=== PATIENT | female | born 1965 | race Hispanic/Latino ===

== ENCOUNTER 2016-05-30 10:49 | Emergency (ER) | payer OTHER ==
[~2016-05-30] VITALS: Ht 154.9 cm; Wt 81.8 kg
[~2016-05-30 10:49] MED LIST: LISI1TAB7 PO
[2016-05-30 10:54] VITALS: BP 135/79; PULSE 69; RESP 18; O2SAT 96
--- NOTE | 2016-05-30 11:03 | ED.REPORT ---
HPI-Abd Pain F 40 and Over Date of Service May 30, 2016 ED Provider: History of Present Illness: right flank pain for a while, told it was a muscle for 2 years worse since sunday, some nausea and burning with urination shan is primary care. normally healthy. 06/14, nothing for the pain Nursing Notes Stated Complaint: LOWER BACK PAIN/ABDOMINAL PAIN Chief Complaint: Female Abdominal Pain Allergies: Coded Allergies: No Known Allergies (Unverified , 01/27/16) Scheduled Lisinopril / HCTZ 10-12.5 mg (Lisinopril / HCTZ 10-12.5 mg) 1 Each Tablet 1 EACH PO DAILY General Time Seen by MD: 11:02 Chief Complaint Abdominal pain, Dysuria Hx Obtained From: Patient Sudden in Onset?: No Symptom Duration: Since onset Past Medical History Past Medical History Reports: Hypertension Past Surgical History Reports: Tubal ligation Smoking History Never Smoker Social History Alcohol Use: Denies alcohol use Drug Use: Denies drug use Occupation lives with family no work or school 05/30/2016 Ambulatory Status Independent Review of Systems Basic Review of Systems Eyes: Vision NL, No discharge Skin: No bruising, No rash, No itch Psychiatric: Normal thought content Physical Exam Vital Signs Vital Signs (First) Date Time Temp Pulse Resp B/P Pulse Ox O2 Delivery O2 Flow Rate FiO2 05/30/16 10:54 36.9 69 18 135/79 96 Room Air Initial VS: Reviewed, Vital signs normal Head / Eyes: Atraumatic, Normocephalic, PERRL ENT: Mucous membranes moist, Conjunctiva normal, No scleral icterus Neck: Supple, Non-tender, Full range of motion Lymphatic: No lymphadenopathy Extremities: Vascular intact, Neuro intact, No swelling, No tenderness Skin: Warm, Dry, No cyanosis Neurologic: Alert, Oriented, Nonfocal Psychiatric: Mood/affect normal, Behavior normal, Normal thought content General/Constitutional: Awake, Alert, No acute distress, Well appearing, Well developed, Well hydrated Respiratory / Chest: Atraumatic, Breath sounds NL, Breath sounds = bilat, No respiratory distress Cardiovascular: Heart rate NL, Regular rhythm, Heart sounds NL epigastric, right upper abd pain to palpabtion Back: Atraumatic, Inspection NL, Full range of motion Interpretation & Diagnostics Lab Results Interpretation Result Diagram: 05/30/16 1134 05/30/16 1134 Test 05/30/16 11:01 05/30/16 11:34 05/30/16 11:55 Urine Color Yellow (YELLOW) Urine Appearance Hazy (CLEAR,HAZY) Urine pH 8.5 (5.0-8.0) Urine Specific [place] 1.015 (1.003-1.035) Urine Protein Tracemg/dL (NEG,TRACE) Urine Glucose (UA) Negativemg/dL (NEGATIVE) Urine Ketones Negativemg/dL (NEGATIVE) Urine Occult Blood Moderate (NEGATIVE) Urine Nitrite Negative (NEGATIVE) Urine Bilirubin Negative (NEGATIVE) Urine Urobilinogen Normalmg/dL (NORMAL) Urine Leukocyte Esterase Small (NEGATIVE) Urine RBC 3-10/hpf (0-2) Urine WBC 11-50/hpf (0-5) Urine Epithelial Cells Occasional/hpf (NONE-MOD) Urine Crystals Amorphous urates (NONE Urine Bacteria Moderate/hpf (NONE-FEW) Urine Hyaline Casts None/lpf (NONE) Urine Granular Casts None seen (NONE SEEN) Urine Waxy Casts None seen (NONE SEEN) Urine Red Blood Cell Casts None seen (NONE SEEN) Urine White Blood Cell Casts None seen (NONE SEEN) Urine Mucus None seen (None Seen) Urine Trichomonas None seen (NONE SEEN) Urine Yeast None (NONE SEEN) Urinalysis Comment None Urine Culture Reflexed Indicated White Blood Count 13.5th/mm3 (3.8-10.1) Red Blood Count 4.43mil/mm3 (3.90-5.20) Hemoglobin 13.5g/dL (12.0-15.6) Hematocrit 39.6% (35.0-46.0) Mean Corpuscular Volume 89.4fL (81-100) Mean Corpuscular Hemoglobin 30.5pg (27.0-35.0) Mean Corpuscular Hemoglobin Concent 34.1% (32.0-37.0) Red Cell Distribution Width 12.6% (12.3-15.4) Platelet Count 239bil/L (150-400) Neutrophils (%) (Auto) 76.9% (40-74) Lymphocytes (%) (Auto) 17.0% (14-46) Monocytes (%) (Auto) 5.3% (4-12) Eosinophils (%) (Auto) 0.4% (0-5) Basophils (%) (Auto) 0.2% (0-3) Sodium Level 138mEq/L (134-144) Potassium Level 4.7mEq/L (3.5-5.2) Chloride Level 98mEq/L (97-108) Carbon Dioxide Level 26mmol/L (18-29) Blood Urea Nitrogen 11mg/dL (6-24) Creatinine 0.51mg/dL (0.57-1.00) Estimat Glomerular Filtration Rate 182mL/min (>59) Glucose Level 117mg/dL (60-99) Calcium Level 10.0mg/dL (8.5-10.1) Total Bilirubin 0.4mg/dL (0.0-1.2) Aspartate Amino Transf (AST/SGOT) 16U/L (0-50) Alanine Aminotransferase (ALT/SGPT) 23U/L (0-32) Alkaline Phosphatase 108U/L (25-150) Total Protein 7.8g/dL (6.4-8.4) Albumin 4.8g/dL (3.4-5.0) Amylase Level 53U/L (28-100) Lipase 20U/L (13-60) Hold Rodriguez Top Tube Received (Received) Lab Results Interpretation: urine shows infection CT Abd / Pelvis Interpretation PROCEDURE: CT ABDOMEN AND PELVIS WITH CONTRAST ([id number]) INDICATIONS: abd pain TECHNIQUE: After the administration of intravenous contrast, 5 mm thick sections acquired from the diaphragm to the symphysis. 5 mm coronal and sagittal reformats were acquired. For radiation dose reduction, the following was used: automated exposure control, adjustment of mA and/or kV according to patient size. COMPARISON: [facility], , US ABDOMEN, 05/30/2016, 11:56. FINDINGS: Image quality: Excellent. ABDOMEN: Lung bases: Lung bases are clear. Heart size is normal. Solid organs: Liver and spleen are normal in size. There is a partially enhancing focus within the posterior right hepatic lobe on series 2 image 17, measuring 14 mm in transverse dimension. Gallbladder is unremarkable. Biliary system is non dilated. Pancreas enhances normally. No adrenal nodules. Kidneys demonstrate normal size and enhancement, without hydronephrosis. Peritoneum and bowel: Bowel loops are overall nonobstructive. No free fluid or air. Minimal scattered diverticula are present without associated inflammatory change. There are several minimally prominent fluid filled small bowel loops, overall nonobstructive. The appendix is unremarkable. Nodes and vessels: No retroperitoneal or mesenteric adenopathy by size criteria. Aorta and inferior vena cava are normal in size. Miscellaneous: No ventral hernias. PELVIS: Genitourinary: Bladder wall thickness is normal. Miscellaneous: No inguinal hernias or adenopathy. Bones: No suspicious bony lesions. No vertebral body compression fractures. IMPRESSION: 1. Minimal fluid filled prominence of scattered small bowel loops, overall nonspecific. This could be related to enteritis. 2. Appendix is unremarkable. No associated inflammatory change. 3. No nephro or ureterolithiasis. 4. Partially enhancing hepatic focus. This is suspected to be related to hemangioma. Further evaluation with dedicated ultrasound within this focal region is recommended. Dictated by: Elizabeth Jay M.D. on 05/30/2016 at 14:57 Approved by: Elizabeth Jay M.D. on 05/30/2016 at 15:03 US Focused non-OB Pelvis PROCEDURE: US ABDOMEN INDICATIONS: abd pain TECHNIQUE: Real-time scanning was performed of the abdominal and retroperitoneal organs, with image documentation. COMPARISON: None. FINDINGS: Liver length: 14.86 cm Gallbladder Wall Thickness: 2.70 mm CHD: 3.80 mm CBD: 4 mm Spleen length: 10.28 cm Right kidney length: 9.09 cm Left kidney length: 12.26 cm Aorta(Proximal): 2.26 cm Aorta(Mid): 1.67 cm Aorta(Distal): 1.68 cm RCIA: 8.50 mm LCIA: 8.50 mm Liver: Liver is normal in size and homogeneous in echotexture. Gallbladder: Normal gallbladder. Biliary ducts: Intrahepatic bile ducts are non-dilated. Extrahepatic bile duct caliber is normal. Normal is 6-7 mm or less in diameter, or 10 mm or less post-cholecystectomy. Pancreas: Visualized portions of the pancreas are sonographically normal. Spleen: Spleen is normal in size and homogeneous in echotexture. Kidneys: Kidneys are normal in size and echotexture. No hydronephrosis or nephrolithiasis. No solid masses. Aorta: Visualized aorta is normal in caliber at less than 3 cm. Iliacs: Proximal common iliac arteries are normal in caliber at less than 2.5 cm. IVC: Intrahepatic inferior vena cava is patent. Miscellaneous: No free abdominal fluid. IMPRESSION: No source for abdominal pain identified. Dictated by: Bob Peña RRA Interpreted: Sugar Montenegro MD on 05/30/2016 at 14:26 Transcribed by: LEAH on 05/30/2016 at 14:27 Approved by: Sugar Montenegro MD, PhD on 05/30/2016 at 16:11 Re-Eval/Medical Decision Med Decision/Clinical Course 50 year old female present with abd pain and dsyuria. Urine does show infection. US is negative. CT shows possible hemaongia. Patient reporting decrease in pain after fluids and toradol. No sign of appy or gall bladder disease Discharge & Departure Primary Impression: Urinary tract infection Hematuria presence: with hematuria Additional Impressions: Abdominal pain Abdominal location: epigastric Qualified Code: R10.13 - Epigastric pain Liver hemangioma Disposition: Home Patient Instructions: Acute Abdominal Pain (ED), Urinary Tract Infection in Women (ED) Additional Instructions: Your labs show a mild increase in your white count. This can indicate an infection. Your urine indicates an infection. Start bactrim in the am and pm for 7 days. The ultrasound shows the gallbladder to be normal. The CT shows that you may have a hemangioma in your liver. This is increased blood flow in that area. This is chronic and has been there for some time. This may be the reason for your discomfort. You may need a dedicated ultrasound to further evaluate this. This can be arranged by your primary care provider. Can use hydrocodone 1 at night as needed for severe unrelenting pain. Referrals: Verena Alaniz MD (PCP) EDSupervising Provider for APC: John Delgado MD copies to: [facility] Alaniz [facility], [facility] May 30, 2016 11:03
[2016-05-30] MEDS ORDERED: 0.9% Sodium Chloride 1,000 ML IV ONE (11:20)
[2016-05-30] MEDS ORDERED: Ondansetron 2 mg/mL 2 mL Inj IVPUSH ONE (11:20)
[2016-05-30 11:50] LABS: BASOPHILS % (AUTO) 0.2 % (0-3); EOSINOPHILS % (AUTO) 0.4 % (0-5); MONOCYTES % (AUTO) 5.3 % (4-12); Mean Corpuscular Hemoglobin 30.5 pg (27.0-35.0); Mean Corpuscular Volume 89.4 fL (81-100); NEUTROPHILS % (AUTO) 76.9 % (40-74); Platelet Count 239 bil/L (150-400)
[2016-05-30 12:43] LABS: Lipase 20 U/L (13-60)
[2016-05-30 13:53] LABS: APPEARANCE,URINE HAZY (CLEAR,HAZY); COLOR,URINE YELLOW (YELLOW); OCCULT BLOOD,URINE MODERATE (NEGATIVE); PH,URINE 8.5 (5.0-8.0)
[2016-05-30 13:54] LABS: UROBILINOGEN,URINE NORMAL (NORMAL)
--- NOTE | 2016-05-30 14:27 | DRSVH ---
PROCEDURE: US ABDOMEN INDICATIONS: abd pain TECHNIQUE: Real-time scanning was performed of the abdominal and retroperitoneal organs, with image documentatio n. COMPARISON: None. FINDINGS: Liver length: 14.86 cm Gallbladder Wall Thickness: 2.70 mm CHD: 3.80 mm CBD: 4 mm Spleen length: 10.28 cm Right kidney length: 9.09 cm Left kidney length: 12.26 cm Aorta(Proximal): 2.26 cm Aorta(Mid): 1.67 cm Aorta(Distal): 1.68 cm RCIA: 8.50 mm LCIA: 8.50 mm Liver: Liver is normal in size and homogeneous in echotexture. Gallbladder: Normal gallbladder. Biliary ducts: Intrahepatic bile ducts are non-dilated. Extrahepatic bile duct caliber is normal. Normal is 6-7 mm or less in diameter, or 10 mm or less post-cholecystectomy. Pancreas: Visualized portions of the pancreas are sonographically normal. Spleen: Spleen is normal in size and homogeneous in echotexture. Kidneys: Kidneys are normal in size and echotexture. No hydronephrosis or nephrolithiasis. No phuong d masses. Aorta: Visualized aorta is normal in caliber at less than 3 cm. Iliacs: Proximal common iliac arteries are normal in caliber at less than 2.5 cm. IVC: Intrahepatic inferior vena cava is patent. Miscellaneous: No free abdominal fluid. IMPRESSION: No source for abdominal pain identified. Dictated by: Bob Peña RRA Interpreted: Sugar Montenegro MD on 05/30/2016 at 14:26 Transcribed by: LEAH on 05/30/2016 at 14:27 Approved by: Sugar Montenegro MD, PhD on 05/30/2016 at 16:11
--- NOTE | 2016-05-30 15:05 | DRSVH ---
PROCEDURE: CT ABDOMEN AND PELVIS WITH CONTRAST ([id number]) INDICATIONS: abd pain TECHNIQUE: After the administration of intravenous contrast, 5 mm thick sections acquired from the diaphragm to the symphysis. 5 mm coronal and sagittal reformats were acquired. For radiation dose reduction, the following was used: automated exposure control, adjustment of mA and/or kV according to patient lamar gomes. COMPARISON: [facility], US, US ABDOMEN, 05/30/2016, 11:56. FINDINGS: Image quality: Excellent. ABDOMEN: Lung bases: Lung bases are clear. Heart size is normal. Solid organs: Liver and spleen are normal in size. There is a partially enhancing focus within the p osterior right hepatic lobe on series 2 image 17, measuring 14 mm in transverse dimension. Gallbladd er is unremarkable. Biliary system is non dilated. Pancreas enhances normally. No adrenal nodules. Kidneys demonstrate normal size and enhancement, without hydronephrosis. Peritoneum and bowel: Bowel loops are overall nonobstructive. No free fluid or air. Minimal scatte red diverticula are present without associated inflammatory change. There are several minimally promi nent fluid filled small bowel loops, overall nonobstructive. The appendix is unremarkable. Nodes and vessels: No retroperitoneal or mesenteric adenopathy by size criteria. Aorta and inferior vena cava are normal in size. Miscellaneous: No ventral hernias. PELVIS: Genitourinary: Bladder wall thickness is normal. Miscellaneous: No inguinal hernias or adenopathy. Bones: No suspicious bony lesions. No vertebral body compression fractures. IMPRESSION: 1. Minimal fluid filled prominence of scattered small bowel loops, overall nonspecific. This could be related to enteritis. 2. Appendix is unremarkable. No associated inflammatory change. 3. No nephro or ureterolithiasis. 4. Partially enhancing hepatic focus. This is suspected to be related to hemangioma. Further evaluati on with dedicated ultrasound within this focal region is recommended. Dictated by: Elizabeth Jay M.D. on 05/30/2016 at 14:57 Approved by: Elizabeth Jay M.D. on 05/30/2016 at 15:03
[2016-05-30 16:52] VITALS: BP 141/8; O2SAT 96
== END 2016-05-30 16:36 | disposition home or self-care (01) ==
LOC: SED 10:49
DX: N39.0 Urinary tract infection, site not specified (principal); D18.03 Hemangioma of intra-abdominal structures; I10 Essential (primary) hypertension
CPT/HCPCS: 36415; 74177; 76700; 80053; 81000; 81025; 82150; 83690; 85025; 87077; 87086; 87088; 87186; 96361; 96374; 96375; 99285; J1885; J2405; J7030; Q9967